=== PATIENT | female | born 1990 | race Caucasian/White ===

== ENCOUNTER 2017-08-01 10:18 | Outpatient (CLI) | payer OTHER ==
--- NOTE | 2017-08-01 12:52 | ULT ---
ULTRASOUND OBSTETRICAL COMPLETE: DATE: 08/01/17. HISTORY: A 26-year-old female in 2nd trimester. Evaluate size and dates, and anatomy. FINDINGS: number: Celis. lie: Variable: transverse at beginning of exam, then vertex at end of exam. Maternal cervix: 4.5 cm and closed. Placenta: Posterior. No placenta previa. Amniotic fluid volume: Subjectively normal. heart rate: 131 b.p.m. The following anatomy is visualized, with no evidence of anomalies: Head, lateral ventricles, cerebellum, nose and lips, spine, upper limbs, lower limbs, four chamber he art, umbilical cord, cord insertion, stomach, kidneys, and bladder. biometry: Head circumference (HC): 17.2 cm 19 w 5 d Biparietal diameter (BPD): 4.4 cm 19 w 3 d Abdominal circumference (AC): 15.0 cm 20 w 2 d Femur length (FL): 3.1 cm 19 w 4 d Average ultrasound age (AUA): 19 w 5 d Estimated date of delivery (CAROLYN): 12/21/2017. Last menstrual period (LMP): 03/13/17. Gestational age by LMP: 20 w 1 d. Estimated weight (EFW): 320 g +/- 47 g (0 lb, 11 0z +/- 2 oz). IMPRESSION: 1. Live 2nd trimester intrauterine gestation. 2. Estimated gestational age of 19 weeks, 5 days. 3. Variable lie. 4. No anatomical abnormalities. car [] POS: [facility]
== END 2017-08-01 10:19 | disposition home or self-care (01) ==
LOC: ULT 10:18
PROVIDERS: ATTEND Family Medicine
DX: Z34.92 Encounter for supervision of normal pregnancy, unspecified, second trimester (principal); Z3A.17 17 weeks gestation of pregnancy
CPT/HCPCS: 76805

== ENCOUNTER 2017-10-28 09:39 | Day surgery (SDC) | payer OTHER ==
[2017-10-28] MEDS ORDERED: Betamet Acet/Betamet Na Ph 30 MG/5 ML VIAL IM SCH (10:00)
[2017-10-28 10:09] VITALS: BMI 32.0
--- NOTE | 2017-10-28 13:03 | ULT ---
OB ULTRASOUND: DATE: 10/28/17. HISTORY: Patient with intrauterine gestation. Evaluate for size and cervical length. FINDINGS: There is a single intrauterine gestation with transverse lie of the fetus with the head to the matern al right. Cardiac Doppler does demonstrate heart tones with a heart rate of 135 b.p.m. There is a normal amount of amniotic fluid with an amniotic fluid index of 16.8 cm. The placenta is located posteriorly and fundally without evidence of placenta previa. The cervical length measures a pproximately 3.1 cm. MEASUREMENTS: Biparietal diameter 8.65 cm, 34 weeks 6 days Head circumference 31.15 cm, 34 weeks 6 days Abdominal circumference 30.46 cm, 34 weeks 3 days Femur length 6.15 cm, 31 weeks 6 days The estimated gestational age by ultrasound is 34 weeks with an CAROLYN on 12/09/17. Gestational age by la st menstrual period is 32 weeks and 5 days. The estimated weight by ultrasound is 2281 gm (5 pounds). This represents 75th percentile for weight. This examination was not performed for evaluation of anatomic structures, but no definite anomalies are appreciated. IMPRESSION: 1. Single intrauterine gestation with heart tones documented. The fetus is in transverse lie with the head to the maternal right. 2. Estimated gestational age by ultrasound is 34 weeks with an estimated date of delivery on 12/09/17. 3. Estimated weight is 2281 gm (5 pounds). 4. The cervical length measures approximately 3.1 cm based on transabdominal imaging. POS: [facility]
== END 2017-10-28 11:45 | disposition home or self-care (01) ==
LOC: L&D/OP 09:39
PROVIDERS: ATTEND Family Medicine
DX: O60.03 Preterm labor without delivery, third trimester (principal); Z3A.32 32 weeks gestation of pregnancy; Z79.899 Other long term (current) drug therapy; Z87.891 Personal history of nicotine dependence
CPT/HCPCS: 59025; 76815; 82731; 96372; 99282; J0702

== ENCOUNTER 2017-10-29 09:06 | Day surgery (SDC) | payer OTHER ==
[2017-10-29] MEDS ORDERED: Betamet Acet/Betamet Na Ph 30 MG/5 ML VIAL IM SCH (11:00)
== END 2017-10-29 10:05 | disposition home or self-care (01) ==
LOC: L&D/OP 09:06
PROVIDERS: ATTEND Family Medicine
DX: O60.03 Preterm labor without delivery, third trimester (principal); Z3A.32 32 weeks gestation of pregnancy; Z79.899 Other long term (current) drug therapy; Z87.891 Personal history of nicotine dependence
CPT/HCPCS: 59025; 96372; 99281

== ENCOUNTER 2017-11-03 15:29 | Day surgery (SDC) | payer OTHER ==
[2017-11-03 16:04] VITALS: BP 128/66; TEMP 97.7; BMI 32.0
[2017-11-03] MEDS ORDERED: Lactated Ringer's 1,000 ML IV SCH (16:15)
--- NOTE | 2017-11-03 16:16 | PDOC.LDHP ---
Labor and Delivery H&P HPI: IN L&D Triage, @ 1614: Patient of Dr Nathaniel Hathaway here for "contractions all weel". She is a 27 yo at 33 weeks 4 days who was seen last week by Dr Hathaway and recieved steroids for threatened PTL. She states contractions have been on/off since/ No VB, unsure id slight vag leakage or not. has good FM. No recent trauma, fever, sex. CSection HX X 1 Review of Systems: complete ROS completed and negative as per HPI Current gestational age (weeks): 33 (4 days) Dating criteria: last menstrual period Grav: 2 Para: 1 Current complications: other (Recieved steroids last week for threatened PTL (arrested)) Abnormal US findings: No Current medications: pre-lizzy vitamins, iron Previous surgical history: low tranverse CS Allergies/Adverse Reactions: Allergies Allergy/AdvReac Type Severity Reaction Status Date / Time No Known Drug Allergies Allergy Verified 11/03/17 16:04 - Physical Exam Vital signs reviewed and normal: yes (BP 128/66 97/7 95 18) General: NAD Heart: RRR Lungs: CTAB Abdomen: gravid Extremeties: no edema FHT: category 1 [place] contractions every: one contraction in 20 minutes - Assessment Threatened PTL at 33 weeks 4 days, s/p steroids in past - Plan Plan: observation in L&D (I will order 1 Liter LR hydration. I will order FFN and Amnisure first prior to vaginal exam. Observe for now. Index of suspcion for true PTL is low at this time.)
[2017-11-03 16:50] LABS: Amnisure Internal Control QC ACCEPTABLE (ACCEPTABLE); Amnisure Test No Membranes Rupture (No Rupture)
[2017-11-03 16:56] LABS: FFN Internal QC Analyzer PASS (PASS); FFN Internal QC Cassette PASS (PASS); Fetal Fibronectin Negative (Negative)
--- NOTE | 2017-11-03 16:56 | PDOC.EVN ---
Event Note - Event Note Event Note: Exam: cervix FT/thick.jigh. I was present during RN exam. We performed valsalva manueveres and cough prior to exam with no evidence of ROM
--- NOTE | 2017-11-03 16:57 | PDOC.EVN ---
Event Note - Event Note Event Note: FFN and Amnisure both negative. Likely Discharge home after IVFs
== END 2017-11-03 17:57 | disposition home or self-care (01) ==
LOC: L&D/OP 15:29
PROVIDERS: ATTEND Family Medicine
DX: O47.03 False labor before 37 completed weeks of gestation, third trimester (principal); Z3A.33 33 weeks gestation of pregnancy; Z79.899 Other long term (current) drug therapy; Z98.890 Other specified postprocedural states; Z98.891 History of uterine scar from previous surgery
CPT/HCPCS: 82731; 84112; 96360; 96361; 99283

== ENCOUNTER 2017-12-11 05:31 | Inpatient (IN) | payer OTHER ==
--- NOTE | 2017-12-10 13:30 | HP ---
DATE OF ADMISSION: 12/11/2017 HISTORY OF PRESENT ILLNESS: This is a 27-year-old white female G2, P1 at 39 weeks with EDC of 2017, be admitted for elective repeat section. She does have a history of 1 prior in 05/2015 for CPD. She was induced for PIH at that time and dilated to 10 cm and encountered CPD. This has been uncomplicated. No complaints of contractions. No complaints of any rupture of membranes. Patient is desiring a repeat section. PAST MEDICAL HISTORY: Includes PIH with CPD with her first and delivered a 7-pound 12-ounc e baby boy. No other medical problems. ALLERGIES: None. PAST SURGICAL HISTORY: at age 25 and at age 16 had wisdom teeth removed. FAMILY HISTORY: Positive for diabetes and heart disease. No cancers noted. SOCIAL HISTORY: Patient is . She has one son. She is at [employer]. She does not smoke. She does not drink. 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 She does have a distant history of smoking use. MEDICATIONS: vitamins and iron daily. REVIEW OF SYSTEMS: As above. PHYSICAL EXAMINATION: VITAL SIGNS: Stable, afebrile. HEENT: Clear. HEART: Regular rate and rhythm. LUNGS: Clear. ABDOMEN: Gravid. heart tones have been unremarkable. EXTREMITIES: With trace edema. LABORATORY AND X-RAY FINDINGS: GBS negative, 3-hour GTT negative, HIV negative, RPR negative. Hemat ocrit 33. TSH normal. RPR negative, hepatitis B negative, HIV negative, O positive blood type. Uri ne culture negative. Rubella immune. ASSESSMENT: 1. A 39-week intrauterine . 2. Prior section for CPD. PLAN: 1. Routine L&D orders. 2. Anesthesia preop. 3. Consent for elective repeat section.
[2017-12-11 05:56] VITALS: BMI 34.0
[2017-12-11] MEDS ORDERED: Acetaminophen 500 MG TAB PO PRN (05:56)
[2017-12-11] MEDS ORDERED: CEFAZOLIN/Water 2 GM/20 ML SYRINGE SLOW IVP SCH (05:56)
[2017-12-11] MEDS ORDERED: Promethazine HCl 25 MG/ML VIAL IM PRN ×2 (05:56→07:55)
[2017-12-11] MEDS ORDERED: Ondansetron HCl/PF 4 MG/2 ML Vial IVP PRN ×3 (05:56→07:55)
[2017-12-11] MEDS ORDERED: Butorphanol Tartrate 1 MG/ML VIAL SLOW IVP PRN (05:56)
[2017-12-11] MEDS ORDERED: Bicitra 30 ML UDCUP PO SCH (05:56)
[2017-12-11] MEDS: Lactated Ringer's 1,000 ML IV SCH ×2 (06:14→19:00)
[2017-12-11 06:24] LABS: Hemoglobin 9.9 g/dL (12.0-16.0); Mean Corpuscular HGB CONC 33.5 g/dL (32.0-36.0); Mean Corpuscular Hemoglobin 27.2 pg (27.0-31.0); Mean Corpuscular Volume 81.1 fl (81.0-99.0); Mean Platelet Volume 8.8 fL (7.4-10.4); Platelet Count 157 thou/uL (130-400); RBC Distribution Width 13.4 % (11.5-14.5); Red Blood Cell (RBC) Count 3.63 mill/uL (4.20-5.40)
[2017-12-11 06:58] LABS: HBSAg Index 0.32 S/CO (0-0.99); Hep B Surf Ag Non-Reactive S/CO (NonReactive); Syphilis Antibody Nonreactive (Nonreactive); Syphilis Antibody Index 0.04 S/CO (<1.00 Non-Reactive)
[2017-12-11] MEDS ORDERED: Morphine PF 1 MG/ML SYR ONE (07:10)
[2017-12-11] MEDS ORDERED: Bupivacaine 0.75% W/DEXTROSE 8.25% 2 ML AMP ONE (07:11)
[2017-12-11] MEDS ORDERED: Oxytocin 10 UNITS/ML VIAL ONE ×2 (07:11→08:22)
[2017-12-11] MEDS ORDERED: Lidocaine 1% PF 5 ML VIAL ONE (07:11)
[2017-12-11] MEDS ORDERED: PHENYLEPHRINE-NS 100 MCG/ML 10 ML SYRINGE ONE ×2 (07:11→15:57)
[2017-12-11] MEDS ORDERED: diphenhydrAMINE 50 MG/ML VIAL IVP PRN (07:55)
[2017-12-11] MEDS ORDERED: HYDROmorphone 2 MG/ML VIAL SLOW IVP PRN (07:55)
[2017-12-11] MEDS ORDERED: Naloxone HCl 0.4 mg/ml Vial IVP PRN ×2 (07:55)
[2017-12-11] MEDS ORDERED: Eucerin (Mineral Oil/Petrolatum,White) 30 gm Jar TOP PRN (07:55)
[2017-12-11] MEDS ORDERED: Ketorolac Tromethamine 30 MG/ML VIAL IVP PRN (07:55)
[2017-12-11] MEDS ORDERED: Meperidine HCl/PF 25 MG/ML VIAL SLOW IVP PRN (07:55)
[2017-12-11] MEDS ORDERED: Promethazine HCl 25 MG SUPP PR PRN (07:55)
[2017-12-11] MEDS ORDERED: Ketorolac Tromethamine 30 MG/ML VIAL IVP SCH (08:00)
[2017-12-11] MEDS ORDERED: Communication Order-Pharmacy FS SCH (08:00)
--- NOTE | 2017-12-11 09:22 | OP ---
DATE OF PROCEDURE: 12/11/2017 PREOPERATIVE DIAGNOSES: 1. Term . 2. Prior section. 3. Gestational diabetes. POSTOPERATIVE DIAGNOSES: 1. Term . 2. Prior section. 3. Gestational diabetes. PROCEDURE: Repeat low transverse section. SURGEON: Nathaniel Lopez M.D. [employer] WORKER: Marilee Lopez M.D. ANESTHESIA: Spinal. PROCEDURE: This 27-year-old white female was taken to the operating room. She was placed in s upine position. Abdomen prepped and draped sterilely. Pfannenstiel incision was made over the previ ous incision. Subcutaneous dissected down to fascia. Fascia was opened without incident. Peritoneu m was opened by blunt dissection. Bladder flap was dissected inferiorly. A low transverse uterine i ncision was made. With the use of a vacuum, delivered a LGA baby. Baby did breathe and cry vigorous ly upon delivery. [facility] team was present. Delivered placenta, 3-vessel intact. I dilated the cervix. Closed the uterus with 1 layer of #1 Monocryl. Several [id number] stitches were placed in the mid incision where there was some bleeding present. FloSeal was placed over the incision. The hemo stasis was adequate. The peritoneum was closed with 2-0 chromic and the fascia was closed with 0 Jens ryl. Skin was closed with richard. Estimated blood loss was 1200 mL. Mother and baby did well.
[2017-12-11] MEDS ORDERED: NS / Oxytocin 40 units/1000ml 1,000 ML ONE (10:37)
[2017-12-11] MEDS ORDERED: Acetaminophen 325 MG TAB PO PRN (11:36)
[2017-12-11] MEDS ORDERED: Misoprostol 200 MCG TAB PR SCH (11:36)
[2017-12-11] MEDS ORDERED: Prenatal Vitamin 1 TAB PO SCH (12:00)
[2017-12-11] MEDS ORDERED: Ferrous Sulfate 325 MG TAB PO SCH (12:00)
[2017-12-11] MEDS ORDERED: Adacel (T-DAP) 0.5 ML VIAL IM ONE (16:00)
[2017-12-11] MEDS: Naloxone HCl 0.4 mg/ml Vial IV PRN ×2 (16:54→21:13)
[2017-12-11] MEDS: Ibuprofen 800 MG TAB PO SCH (17:04)
[2017-12-11] MEDS: diphenhydrAMINE 25 MG CAP PO PRN (21:08)
[2017-12-12] MEDS: Ferrous Sulfate 325 MG TAB PO SCH ×3 (02:54→21:53)
[2017-12-12] MEDS: Ibuprofen 800 MG TAB PO SCH ×4 (02:55→21:53)
[2017-12-12] MEDS: diphenhydrAMINE 25 MG CAP PO PRN (04:22)
[2017-12-12 04:59] LABS: Mean Corpuscular HGB CONC 34.2 g/dL (32.0-36.0); Mean Corpuscular Hemoglobin 28.1 pg (27.0-31.0); Mean Platelet Volume 8.8 fL (7.4-10.4); Platelet Count 128 thou/uL (130-400); RBC Distribution Width 13.2 % (11.5-14.5); Red Blood Cell (RBC) Count 2.86 mill/uL (4.20-5.40); White Blood Cell (WBC) Count 11.6 thou/uL (4.8-10.8)
[2017-12-12] MEDS: Prenatal Vitamin 1 TAB PO SCH (08:14)
[2017-12-12] MEDS: HYDROcodone/Acetaminophen 5/325 mg Tablet PO PRN ×3 (08:15→18:31)
[2017-12-13] MEDS: HYDROcodone/Acetaminophen 5/325 mg Tablet PO PRN ×4 (01:07→16:01)
[2017-12-13] MEDS: Ibuprofen 800 MG TAB PO SCH ×2 (05:31→13:42)
[2017-12-13] MEDS: Ferrous Sulfate 325 MG TAB PO SCH (08:44)
[2017-12-13] MEDS: Prenatal Vitamin 1 TAB PO SCH (08:44)
[2017-12-13 08:48] LABS: #Eosinphils 0.1 thou/uL (0.0-0.7); #Lymphocytes 0.8 thou/uL (1.20-3.40); #Monocytes 0.4 thou/uL (0.11-0.59); %Basophils 0.2 % (0.0-1.0); %Eosinophils 1.7 % (0.0-10.0); %Lymphocytes 10.9 % (21.0-51.0); %Monocytes 5.9 % (0.0-10.0); %Neutrophils 81.3 % (42.0-75.0); Hemoglobin 7.6 g/dL (12.0-16.0); Mean Corpuscular HGB CONC 33.8 g/dL (32.0-36.0); Mean Corpuscular Hemoglobin 27.8 pg (27.0-31.0); Mean Corpuscular Volume 82.4 fl (81.0-99.0); Platelet Count 112 thou/uL (130-400); RBC Distribution Width 13.4 % (11.5-14.5); Red Blood Cell (RBC) Count 2.72 mill/uL (4.20-5.40); White Blood Cell (WBC) Count 7.4 thou/uL (4.8-10.8)
[2017-12-13 09:07] VITALS: BP 136/85; TEMP 97
== END 2017-12-13 18:16 | disposition home or self-care (01) | DRG 766 ==
LOC: L&D 05:31 → 3SW 10:50
PROVIDERS: ADMIT Family Medicine; ATTEND Family Medicine
PROC: 10D00Z1 Extraction of Products of Conception, Low, Open Approach (ICD-10-PCS; principal; 2017-12-11)
PROC: 4A0HXCZ Measurement of Products of Conception, Cardiac Rate, External Approach (ICD-10-PCS; 2017-12-11)
PROC: 3E0234Z Introduction of Serum, Toxoid and Vaccine into Muscle, Percutaneous Approach (ICD-10-PCS; 2017-12-13)
DX: O24.429 Gestational diabetes mellitus in childbirth, unspecified control (principal); O13.4 Gestational [pregnancy-induced] hypertension without significant proteinuria, complicating childbirth; O34.211 Maternal care for low transverse scar from previous cesarean delivery; O36.63X0 Maternal care for excessive fetal growth, third trimester, not applicable or unspecified; Z3A.39 39 weeks gestation of pregnancy; Z37.0 Single live birth; Z23 Encounter for immunization
CPT/HCPCS: 36415; 51702; 85025; 85027; 86780; 86850; 86900; 86901; 87340; 90715; J1200; J1885; J2001; J2274; J2310; J2405; J2590; J3490

== ENCOUNTER 2025-03-10 13:37 | Outpatient (CLI) | payer OTHER | END 2025-03-10 13:38 | disposition home or self-care (01) | LOC: SCSMRI 13:37 | PROVIDERS: ATTEND Internal Medicine | DX: M51.17 Intervertebral disc disorders with radiculopathy, lumbosacral region (principal) | CPT/HCPCS: 72148 ==